=== PATIENT | female | born 1970 ===

== ENCOUNTER 2022-03-13 20:57 | Emergency (ER) | payer OTHER ==
[~2022-03-13] VITALS: Ht 162.6 cm; Wt 70.3 kg
[2022-03-13] MEDS ORDERED: PREVACID15 M1 (21:16)
== END 2022-03-14 00:05 | disposition home or self-care (01) ==
LOC: ER 20:57
DX: K29.70 Gastritis, unspecified, without bleeding (principal); K27.9 Peptic ulcer, site unspecified, unspecified as acute or chronic, without hemorrhage or perforation